=== PATIENT | male | born 1930 | race Caucasian/White ===

== ENCOUNTER → 2016-12-17 | Outpatient (CLI) | payer MEDICARE ==
[~2016-12-17] MED LIST: AMARYL4 MG PO; CAL MAG ZINC +1 EAC1 PO; FISH OIL1000 MG PO; GLUCOPHAGE500 MG PO; IMODIUM2 MG PO; LEVOTHROID(SYN75 MCG PO; [UNRECOGNIZED DRUG - OTHER] PO
== END | disposition disaster alternative care site (69) ==
LOC: GRAD 10:46
DX: R10.9 Unspecified abdominal pain (principal); R19.7 Diarrhea, unspecified
CPT/HCPCS: A9537

== ENCOUNTER → 2016-12-24 | Outpatient (CLI) | payer MEDICARE | END | disposition disaster alternative care site (69) | LOC: GRAD 10:14 | DX: R10.9 Unspecified abdominal pain (principal); Z87.898 Personal history of other specified conditions | CPT/HCPCS: A9541 ==